=== PATIENT | female | born 1980 | race Caucasian/White ===

== ENCOUNTER → 2016-06-18 | Outpatient (REF) | payer OTHER ==
[2016-06-20 14:15] LABS: D001-IgE D pteronyssinus <0.10 kU/L (Class 0); E001-IgE Cat Epith/Dander < 0.10 kU/L (Class 0); E005-IgE Dog Dander < 0.10 kU/L (Class 0); G002-IgE Bermuda Grass 0.12 kU/L (Class 0/I); G008-IgE Kentucky Bluegrass 0.17 kU/L (Class 0/I); M001-IgE Penicillium chrysogen < 0.10 kU/L (Class 0); M002 IgE Cladosporium herbaru < 0.10 kU/L (Class 0); M003 IgE Aspergillus fumigatu < 0.10 kU/L (Class 0); M006-IgE Alternaria alternata < 0.10 kU/L (Class 0); T001-IgE Maple/Box Elder < 0.10 kU/L (Class 0); T003-IgE Common Silver Birch < 0.10 kU/L (Class 0); T007-IgE Oak, White < 0.10 kU/L (Class 0); T008-IgE Elm, American < 0.10 kU/L (Class 0); T015-IgE Ash, White < 0.10 kU/L (Class 0); T041-IgE Hickory, White < 0.10 kU/L (Class 0); W001-IgE Ragweed, Short < 0.10 kU/L (Class 0); W009-IgE Plantain, English < 0.10 kU/L (Class 0); W014-IgE Pigweed, Rough < 0.10 kU/L (Class 0); W018-IgE Sheep Sorrel < 0.10 kU/L (Class 0)
== END ==
LOC: M LAB REF 12:53
PROVIDERS: ATTEND Nurse Practitioner Adult Health
DX: J45.909 Unspecified asthma, uncomplicated (principal)

== ENCOUNTER → 2016-11-13 | Outpatient (CLI) | payer OTHER ==
--- NOTE | 2016-11-13 12:18 | REP ---
Clinical: Asthma with acute dyspnea . Comparison: 07/29/2016 . Technique: PA and lateral. Findings: The mediastinum and cardiac silhouette are normal. The lung cain are clear and without acute consolidation, effusion, or pneumothorax. The skeletal structures are intact and normal. Impression: 1. No acute cardiopulmonary process. Signed by Montez Logan MD 11/13/2016 12:08 P
== END ==
LOC: M LRY 11:36
PROVIDERS: ATTEND Nurse Practitioner Family
DX: J45.901 Unspecified asthma with (acute) exacerbation (principal)
CPT/HCPCS: 71020; 94640; G0463; J2930; J7644